=== PATIENT | female | born 1955 | race Caucasian/White ===

== ENCOUNTER 2017-10-08 07:06 | Day surgery (SDC) | payer OTHER ==
[2017-10-03 10:09] VITALS: BMI 27.6
[~2017-10-08 07:06] MED LIST: LACTATED RINGERS 1,000 ML IV SCH; LIDOCAINE 1% 20 ML VIAL (10MG/ML) FOR IV START INTRADERMA PRN
[2017-10-08] MEDS ORDERED: IV FLUID CONTINUATION 1,000 ML IV ONE (07:17)
[2017-10-08 07:29] VITALS: RESP 16; TEMP 98.1
[2017-10-08 07:35] LABS: Glucose,Whole Blood 143 mg/dL (75-99)
[2017-10-08] MEDS ORDERED: PROPOFOL 10 MG/ML 20 ML VIAL IV ONE (07:47)
--- NOTE | 2017-10-08 07:58 | P.GSHP ---
History of Present Illness H&P Date: 10/08/17 Chief Complaint: screening colonoscopy this is a 61-year-old female referred from Eric Bermudez PA-C. 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 History of Any Multi-Drug Resistant Organisms: None Reported Additional Past Surgical History / Comment(s): CATARACTS Past Anesthesia/Blood Transfusion Reactions: No Reported Reaction Past Psychological History: Depression Smoking Status: Heavy tobacco smoker Past Alcohol Use History: None Reported Additional Past Alcohol Use History / Comment(s): SMOKES 1- 1 & 1/2 PPD. SMOKING FOR 40 YEARS Past Drug Use History: None Reported - Past Family History Mother Family Medical History: Cancer Additional Family Medical History / Comment(s): LUNG CANCER Father Family Medical History: Cancer Additional Family Medical History / Comment(s): LIVER CANCER Medications and Allergies Home Medications Medication Instructions Recorded Confirmed Type Albuterol Inhaler [Ventolin Hfa 1 - 2 puff INHALATION Q6HR PRN 10/03/17 History Inhaler] Aspirin [Adult Low Dose Aspirin EC] 81 mg PO DAILY 10/03/17 10/03/17 History Atorvastatin [Lipitor] 40 mg PO HS 10/03/17 10/03/17 History Cholecalciferol [Vitamin D3] 1,000 unit PO DAILY 10/03/17 10/03/17 History FLUoxetine HCL [PROzac] 20 mg PO DAILY 10/03/17 10/03/17 History Ferrous Sulfate [Feosol] 325 mg PO DAILY 10/03/17 10/03/17 History Levothyroxine Sodium [Synthroid] 100 mcg PO DAILY 10/03/17 10/03/17 History Lisinopril [Zestril] 20 mg PO DAILY 10/03/17 10/03/17 History Champion-3 Fatty Acids/Fish Oil [Fish 1 each PO DAILY 10/03/17 10/03/17 History Oil 1,000 mg Softgel] Umeclidinium [employer] [Incruse 1 puff INHALATION DAILY 10/03/17 10/03/17 History Ellipta] Vitamin C/Biotin [Hair, Skin and 1 tab PO DAILY 10/03/17 10/03/17 History Nails] metFORMIN HCL [Glucophage] 1,000 mg PO BID 10/03/17 10/03/17 History Allergies Allergy/AdvReac Type Severity Reaction Status Date / Time No Known Allergies Allergy Verified 10/08/17 07:26 Surgical - Exam Vital Signs Temp Pulse Resp BP Pulse Ox 98.1 F 90 16 132/68 94 L 10/08/17 07:27 10/08/17 07:27 10/08/17 07:27 10/08/17 07:27 10/08/17 07:27 - General well developed, no distress - Eyes PERRL - ENT normal pinna - Neck no masses - Respiratory normal expansion - Cardiovascular Rhythm: regular - Abdomen Abdomen: soft, non tender Results - Labs Abnormal Lab Results - Last 24 Hours (Table) 10/08/17 Range/Units 07:33 POC Glucose (mg/dL) 143 H (75-99) mg/dL Assessment and Plan Assessment: we will perform screening colonoscopy.
--- NOTE | 2017-10-08 08:11 | P.OP ---
Date of Procedure: 10/08/17 Preoperative Diagnosis: screening colonoscopy Postoperative Diagnosis: rectal polyp Procedure(s) Performed: colonoscopy Anesthesia: MAC Surgeon: Chema Munguia Pathology: other (rectal polyp) Condition: stable Disposition: PACU Description of Procedure: the patient's placed on the endoscopy table in the lateral position. She received IV sedation. Digital rectal exam was performed which revealed no abnormalities. The flexible colonoscope was then placed patient anus and passed throughout the entire colon. The ileocecal valve was visualized. The cecum, ascending and transverse colon appeared normal. The descending colon was normal. The sigmoid colon appeared normal. Scope was then brought back the rectum and a small sessile polyp was seen. This was removed with the cold forcep. The scope was then withdrawn from patient.
[2017-10-08 08:31] VITALS: BP 117/59; PULSE 76
== END 2017-10-08 09:10 | disposition home or self-care (01) ==
LOC: ORWHC2ENDO 07:06
PROVIDERS: ATTEND Surgery
DX: Z12.11 Encounter for screening for malignant neoplasm of colon (principal); K62.1 Rectal polyp; J44.9 Chronic obstructive pulmonary disease, unspecified; E11.9 Type 2 diabetes mellitus without complications; I10 Essential (primary) hypertension; E07.9 Disorder of thyroid, unspecified; E78.5 Hyperlipidemia, unspecified; F32.9 Major depressive disorder, single episode, unspecified; F17.210 Nicotine dependence, cigarettes, uncomplicated; Z79.82 Long term (current) use of aspirin; Z79.51 Long term (current) use of inhaled steroids; Z79.84 Long term (current) use of oral hypoglycemic drugs; Z79.899 Other long term (current) drug therapy
CPT/HCPCS: 88305; 45380; J2704

== ENCOUNTER → 2018-11-28 | Outpatient (CLI) | payer OTHER ==
--- NOTE | 2018-12-01 09:52 | CTL ---
EXAMINATION TYPE: CT Low Dose Lung DATE OF EXAM ORDERED: 11/28/2018 HISTORY: . Lung cancer screening CT DLP: [address] CTDI: 2.14 mGy Automated exposure control for dose reduction was used. SCREENING VISIT: COMPARISON: TECHNIQUE: Low dose computed tomography scan was performed through the chest at 1 mm thick sections a nd reconstructed images in the coronal plane at [address] DIAGNOSTIC QUALITY: Satisfactory FINDINGS: LUNG NODULES: There is a 2 mm subpleural nodule right upper lobe axial image 59. Additional subpleural 3 mm nodule superior segment right lower lobe axial image 63 LUNGS: There are areas of subsegmental consolidation bilaterally. No pleural effusion. No pneumothorax. Ther e is an 8 mm area of irregular density in the left upper lobe. No pleural calcification. There is pleural thickening bilaterally greater on the right. Hyperinflation suggests COPD. Emphysematous changes are noted. HEART: Coronary artery calcification is seen. Heart size normal. No sizable pericardial effusion. OTHER FINDINGS: Atherosclerotic change of the aorta. No evidence of aneurysm. There also is soft tissue prominence in the region of the pancreatic head. Hypertrophic and degenerative changes of the vertebral column. IMPRESSION: 1. COPD with couple scattered subpleural nodules measuring less than 5 mm. There is an 8mm somewhat i rregular density for which dedicated standard PET CT scan chest recommended. There also soft tissue prominence in the region the pancreatic head for which CT of the abdomen is recommended. FOLLOW UP CT CHEST RECOMMENDATION: Recommend dedicated PET/CT CT scan of the chest and abdomen with c ontrast for further evaluation. CT LUNG RAD: 4
== END | disposition home or self-care (01) ==
LOC: RADCTMAIN 16:31
PROVIDERS: ATTEND Family Medicine
DX: Z12.2 Encounter for screening for malignant neoplasm of respiratory organs (principal); J44.9 Chronic obstructive pulmonary disease, unspecified; Z87.891 Personal history of nicotine dependence

== ENCOUNTER → 2018-12-06 | Outpatient (CLI) | payer OTHER ==
--- NOTE | 2018-12-07 16:58 | PE ---
EXAMINATION TYPE: PET CT fusion skull to thigh DATE OF EXAM: 12/06/2018 COMPARISON: Low-dose CT chest 11/28/2018 Prior PET/CT: None HISTORY: Solitary pulmonary nodule TECHNIQUE: Following the intravenous administration of 15.21 mCi of F-18 FDG, whole body images are performed from the skull base to the midthigh. Images are reviewed on the computer in the coronal, a xial, and sagittal planes. Reconstructed rotating images are created on independent workstation and reviewed on the computer. A localization and attenuation correction CT is performed in conjunction with the PET scan. DLP: 327.83 mGycm SCAN: Initial Blood glucose: 175 mg/dL Average Mediastinum SUV: 1.4 Average Liver SUV: 1.97 FINDINGS: NECK: No abnormal uptake THORAX: No abnormal uptake. No corresponding abnormality to the left upper lobe abnormality. Small fo fatemeh area of increased density within the lingula, image 99, has an SUV value of 0.41 slightly benign. This may be below the threshold monitoring is recommended. ABDOMEN: No abnormal uptake PELVIS: No abnormal uptake OSSEOUS STRUCTURES: No abnormal uptake LOCALIZATION CT: Small spiculated areas within the lingula on image 99 measures 1.0 cm. No abnormal u ptake of radiotracer is evident. The ascending thoracic aorta at the level the main pulmonary artery is 3.6 cm the main pulmonary artery the bifurcation is 2.9 cm. COMPARISON: No significant interval changes evident. IMPRESSION: 1. No suspicious uptake to suggest neoplasm. 2. Density within the left lung remains present. Monitoring with CT in 6 months is recommended.
== END | disposition home or self-care (01) ==
LOC: RADPETMAIN 09:01
PROVIDERS: ATTEND Physician Assistant
DX: R91.1 Solitary pulmonary nodule (principal)
CPT/HCPCS: 78815; A9552